=== PATIENT | male | born 1995 | race Caucasian/White ===

== ENCOUNTER 2019-08-03 20:03 | Emergency (ER) | payer OTHER, SELFPAY ==
[2019-08-03 20:08] VITALS: BP 139/96; PULSE 76; RESP 16; TEMP 37; O2SAT 100; BMI 21.5
--- NOTE | 2019-08-03 20:26 | XR_ITS ---
WS: [id number] Left hand, 3 views, 08/03/2019 Clinical Data: trauma Comparison: None. Findings: There is a comminuted fracture of the ungual tuft of the distal phalanx of the left second finger. Th ere is also a laceration at this level. The remainder of the phalanges is normal. The metacarpals and carpal bones show no abnormalities. The joint spaces are normal. XR/XR hand LT min 3V* [id number] Impression: Fracture of the ungual tuft of the distal phalanx of the left second finger.
--- NOTE | 2019-08-03 20:30 | ED_ITS ---
HPI - Wound/Laceration General: Chief Complaint: Wound/Laceration Stated Complaint: finger lac Time Seen by Provider: 08/03/19 20:26 History of Present Illness: HPI narrative: Patient struck left index finger with a hammer against the brake sustaining the laceration open Onset (ago): minute(s) Location: other Extremity Location: Left: hand Body four view annotation: 1. Place: home Context: accidental Associated symptoms: Reports no associated symptoms; Denies chills, fever(s), nausea or vomiting Review of Systems Const: Denies: fever, chills or body aches Eyes: Denies: change in vision or blurry vision ENMT: Denies: throat pain or nasal congestion Card: Denies: chest pain or shortness of breath on exertion Resp: Denies: shortness of breath, productive cough or non-productive cough GI: Denies: abdominal pain, nausea or vomiting : Denies: difficulty urinating Musc: Reports: extremity pain and joint pain Skin/Breast: Denies: rash Neuro: Denies: headache Psych: Denies: anxiety or depression Lee/Lymph: Denies: easy bruising Physical Exam Const: COMMON NORMALS: no apparent distress, average body habitus and oriented x3 HENMT: COMMON NORMALS: normocephalic HEAD & SCALP: normal to inspection and normocephalic FACE & SINUS: normal facial exam Eye: COMMON NORMALS: conjunctivae normal GENERAL EYE: normal appearance of both eyes CONJUNCTIVA: Yes conjunctivae normal Neck/C-Spine: COMMON NORMALS: no JVD Chest: COMMONS NORMALS: inspection of chest normal Resp: COMMON NORMALS: normal respiratory effort and clear to auscultation bilaterally AUSCULTATION: clear to auscultation bilaterally Cardio: COMMON NORMALS: no JVD, regular rate and regular rhythm RATE: regul ar rate RHYTHM: regular rhythm GI: COMMON NORMALS: normal to inspection, nondistended, normoactive bowel sounds Extremity: COMMON NORMALS: normal to inspection and full ROM LEFT UPPER EXTREMITY: Yes hand & digits (Left index finger with open fracture and laceration. Has full range of motion. Good neurovascular status) Neuro: COMMON NORMALS: oriented x3 Course Vital Signs: Vital signs: Vital Signs Temperature 98.6 F 08/03/19 20:08 Pulse Rate 76 08/03/19 20:08 Respiratory Rate 16 08/03/19 20:08 Blood Pressure 139/96 08/03/19 20:08 Pulse Oximetry 100 08/03/19 20:08 MDM - Wound/Laceration Imaging Data^: Xray Ortho: My impression: Left index finger open fracture with avulsion of bone above the DIP joint Discharge Plan Discharge Clinical Impression: Open fracture of finger of left hand Condition: Stable Prescriptions: No Action No Known Home Medications RF: 0 Discharge Diet: Usual diet Discharge Activity: Limit activity as instructed Patient Instructions: Finger Fracture (ED) Coding Level of Care Code ED 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
[2019-08-03] MEDS: HYDROcodone-acetaminophen 5-325 mg Tablet 1 TAB PO (21:20)
[2019-08-03] MEDS: sulfamethoxazole-trimeth DS 160-800 mg Tablet 1 TAB PO (21:21)
[2019-08-03] MEDS: tetanus-diphtheria tox (adult) 0.5 mL SDV IM (21:21)
[2019-08-03 22:10] VITALS: BP 126/69; PULSE 67; RESP 18; TEMP 36.9; O2SAT 97
--- NOTE | 2019-08-04 09:14 | DCPLANNER ---
Addendum entered by Larisa Fuentes 08/04/19 10:15: Pat from ortho called case technician with appointment information. Patient has a follow up appointment scheduled for Thursday, August 08, 2019 at 1:[address] Mcnair. Patient is aware of appointment. Original Note: gas well drilling manager had message to schedule a follow up appointment for patient with ortho. gas well drilling manager called ortho, spoke with Pat, gave clinic patients information. gas well drilling manager was told that patients information would be printed and reviewed. Clinic will call case technician and patient with appointment information.
--- NOTE | 2019-08-17 15:19 | DCPLANNER ---
Patient attended appointment scheduled with ortho.
== END 2019-08-03 22:11 | disposition home or self-care (01) ==
PROVIDERS: Emergency Provider Nurse Practitioner Family
DX: S62.631B Displaced fracture of distal phalanx of left index finger, initial encounter for open fracture (principal); W22.8XXA Striking against or struck by other objects, initial encounter; Z23 Encounter for immunization
CPT/HCPCS: 73130; 90472; 90714; 99281

== ENCOUNTER 2023-06-03 16:21 | Outpatient (CLI) | payer OTHER, SELFPAY ==
--- NOTE | 2023-06-03 | MR_ITS ---
WS: [id number] MRI CERVICAL SPINE NONCONTRAST TECHNIQUE: Sagittal T1, T2 and STIR imaging. Axial T2, gradient, and fiesta imaging. CLINICAL INFORMATION: CERVICALGIA COMPARISON: None. FINDINGS: Straightening with reversal normal cervical lordosis. Prominent disc protrusions at C4-C5 and C6-C7. Inferior herniation of disc material at C6-7 with caudal migration to mid C7. Indentation on the cerv ical cord with mild central canal stenosis C4-5 and mild to moderate at C6-7. Chiari I malformation. Normal fourth ventricle. No significant crowding of the foramen magnum. C2-C3: Normal. C3-C4: Normal. C4-C5: Central and RIGHT paracentral disc protrusion with indentation on the cervical cord with mild central canal stenosis. Moderate RIGHT proximal foraminal narrowing. C5-C6: Normal. C6-C7: RIGHT paracentral disc protrusion with indentation on the RIGHT ventral cervical cord. Mild to moderate central canal stenosis. Foramen are patent. C7-T1: Normal. Visualized brain stem structures: Normal. Prevertebral soft tissues: Normal. IMPRESSION: 1. Straightening with slight reversal the normal cervical lordosis. 2. Prominent protrusions C4-C5 and C6-C7 with slight inferior migration of disc material at C6-7. 3. RIGHT paracentral and subarticular protrusion C4-C5 with indentation on the cervical cord and mil d central canal stenosis. Moderate RIGHT proximal foraminal narrowing. 4. RIGHT paracentral protrusion C6-7 with slight caudal migration of disc material. Mild to moderate central canal stenosis with impingement on the cervical cord. 5. Cord signal remains normal. 6. Chiari I malformation. Normal fourth ventricle. No significant crowding of the foramen magnum.
== END 2023-06-03 16:22 | disposition home or self-care (01) ==
PROVIDERS: PCP Occupational Therapy Assistant; Visit Provider Nurse Practitioner Family
DX: M54.2 Cervicalgia (principal); M50.123 Cervical disc disorder at C6-C7 level with radiculopathy; G93.5 Compression of brain
CPT/HCPCS: 72141